=== PATIENT | female | born 1950 | race Caucasian/White ===

== ENCOUNTER → 2024-02-19 12:47 | Outpatient (REF) | payer MEDICARE, OTHER, SELFPAY | LOC: HWRAD 12:47 | PROVIDERS: ATTENDING PHYSICIAN Dermatology; FAMILY PHYSICIAN Family Medicine | DX: D86.3 Sarcoidosis of skin (principal) | CPT/HCPCS: 71046 ==

== ENCOUNTER → 2024-03-07 12:43 | Outpatient (REF) | payer MEDICARE, OTHER, SELFPAY | LOC: HWRAD 12:43 | PROVIDERS: ATTENDING PHYSICIAN Internal Medicine Critical Care Medicine; FAMILY PHYSICIAN Family Medicine; REFERRING PHYSICIAN Internal Medicine Cardiovascular Disease | DX: D86.9 Sarcoidosis, unspecified (principal) | CPT/HCPCS: 71250 ==

== ENCOUNTER → 2024-03-12 10:22 | Outpatient (REF) | payer MEDICARE, OTHER, SELFPAY | LOC: HWRCS 10:22 | PROVIDERS: ATTENDING PHYSICIAN Internal Medicine Critical Care Medicine | DX: R06.02 Shortness of breath (principal); D86.9 Sarcoidosis, unspecified | CPT/HCPCS: 93306 ==

== ENCOUNTER → 2024-04-30 13:16 | Outpatient (REF) | payer MEDICARE, OTHER, SELFPAY ==
[2024-04-30 15:26] LABS: Hematocrit 37.8 % (37.0-47.0); Hemoglobin 12.9 g/dL (12.0-16.0); Mean Corp Hgb Conc. 34.1 g/dL (33.0-37.0); Mean Corpuscular Hgb 31.2 pg (27.0-31.0); Mean Corpuscular Volume 91.5 fL (81.0-99.0); Mean Platelet Volume 9.8 fL (7.4-10.4); Platelet Count 270 10^3/uL (130-400); Red Blood Cell Count 4.13 10^6/uL (4.20-5.40); Red Cell Dist. Width 14.5 % (11.5-14.5); White Blood Cell Count 8.8 10^3/uL (4.8-10.8)
[2024-04-30 15:36] LABS: Blood Urea Nitrogen 30 mg/dl (7-17); Calcium 10.3 mg/dl (8.4-10.2); Carbon Dioxide 30 mmol/L (22-30); Chloride 99 mmol/L (98-107); Glucose 90 mg/dl (70-99); Magnesium 1.8 mg/dl (1.6-2.3); Potassium 4.4 mmol/L (3.5-5.1); Sodium 139 mmol/L (135-145); eGFR 39.97
[2024-04-30 15:38] LABS: Urine Albumin Trace (Neg - Trace); Urine Bilirubin Negative (Negative); Urine Character Slightly Cloudy (Clear); Urine Color Yellow; Urine Glucose Negative (Negative); Urine Ketone Negative (Negative); Urine Leukocyte 2+ (Negative); Urine Nitrite Negative (Negative); Urine Occult Blood 1+ (Negative); Urine Specific Gravity 1.015 (<1.030); Urine Urobilinogen Negative (Neg - 1+)
[2024-04-30 15:55] LABS: Urine Bacteria Few (Negative); Urine Squamous Cell 26-30 /LPF (Few)
[2024-04-30 16:01] LABS: Protein/creatinine Ratio 0.1; Urine Protein 17 mg/dl
[2024-04-30 16:45] LABS: Uric Acid 5.8 mg/dl (2.5-6.2)
== END ==
LOC: HWLAB 13:16
PROVIDERS: ATTENDING PHYSICIAN Internal Medicine; FAMILY PHYSICIAN Family Medicine
DX: I12.9 Hypertensive chronic kidney disease with stage 1 through stage 4 chronic kidney disease, or unspecified chronic kidney disease (principal); N18.31 Chronic kidney disease, stage 3a
CPT/HCPCS: 36415; 80048; 81003; 81015; 82570; 83735; 84100; 84156; 84550; 85027

== ENCOUNTER → 2024-06-21 10:07 | Outpatient (REF) | payer MEDICARE, OTHER, SELFPAY | LOC: HWRAD 10:07 | PROVIDERS: ATTENDING PHYSICIAN Internal Medicine; FAMILY PHYSICIAN Family Medicine | DX: M81.0 Age-related osteoporosis without current pathological fracture (principal) | CPT/HCPCS: 77080 ==

== ENCOUNTER → 2024-07-04 10:46 | Outpatient (REF) | payer MEDICARE, OTHER, SELFPAY | LOC: HWWDC 10:46 | PROVIDERS: ATTENDING PHYSICIAN Family Medicine | DX: Z12.31 Encounter for screening mammogram for malignant neoplasm of breast (principal) | CPT/HCPCS: 77063; 77067 ==

== ENCOUNTER → 2024-07-11 10:23 | Outpatient (REF) | payer MEDICARE, OTHER, SELFPAY | LOC: WDC 10:23 | PROVIDERS: ATTENDING PHYSICIAN Family Medicine | DX: R92.8 Other abnormal and inconclusive findings on diagnostic imaging of breast (principal) | CPT/HCPCS: 76642 ==

== ENCOUNTER → 2024-08-16 11:34 | Outpatient (REF) | payer MEDICARE, OTHER, SELFPAY ==
[2024-08-16 15:47] LABS: Calcium 10.4 mg/dl (8.4-10.2); Phosphorus 4.2 mg/dl (2.5-4.5)
[2024-08-16 16:34] LABS: Vitamin D, 25-OH*** 68.5 ng/mL (30-80)
[2024-08-19 00:16] LABS: ANA, IgG Reflex to HEp-2 None Detected (None Detected)
[2024-08-19 08:27] LABS: 24 Hour Urine Total Volume Random mL; Urine Collection Length Random hr; Urine Free Kappa Light Chains 23.23 mg/L (0.00-32.90); Urine Free Lambda Light Chains 2.83 mg/L (0.00-3.79)
== END ==
LOC: HWLAB 11:34
PROVIDERS: ATTENDING PHYSICIAN Family Medicine; REFERRING PHYSICIAN Dermatology
DX: M24.811 Other specific joint derangements of right shoulder, not elsewhere classified (principal); M35.9 Systemic involvement of connective tissue, unspecified; M85.80 Other specified disorders of bone density and structure, unspecified site
CPT/HCPCS: 73030; 82306; 82310; 83521; 84100; 84155; 84156; 84165; 86038; 86335; 86430

== ENCOUNTER → 2024-08-22 06:23 | Day surgery (SDC) | payer MEDICARE, OTHER, SELFPAY | LOC: GI 06:23 | PROVIDERS: ATTENDING PHYSICIAN Internal Medicine Gastroenterology; FAMILY PHYSICIAN Family Medicine | DX: Z12.11 Encounter for screening for malignant neoplasm of colon (principal); R19.5 Other fecal abnormalities; K64.8 Other hemorrhoids; K57.30 Diverticulosis of large intestine without perforation or abscess without bleeding; D12.5 Benign neoplasm of sigmoid colon; D12.4 Benign neoplasm of descending colon; K62.1 Rectal polyp | CPT/HCPCS: 45385; 45380; 88305 ==

== ENCOUNTER → 2024-09-02 12:28 | Outpatient (REF) | payer MEDICARE, OTHER, SELFPAY ==
[2024-09-02 17:06] LABS: Blood Urea Nitrogen 35 mg/dl (7-17); Calcium 10.1 mg/dl (8.4-10.2); Carbon Dioxide 30 mmol/L (22-30); Chloride 96 mmol/L (98-107); Glucose 92 mg/dl (70-99); Magnesium 1.8 mg/dl (1.6-2.3); Potassium 4.6 mmol/L (3.5-5.1); Sodium 141 mmol/L (135-145); eGFR 39.97
[2024-09-02 17:07] LABS: Uric Acid 4.5 mg/dl (2.5-6.2)
[2024-09-02 17:43] LABS: % Basophils 0.5 % (0-2); % Eosinophils 1.9 % (0-6); % Lymphocytes 12.6 % (20.5-51.1); % Monocytes 8.2 % (1.7-9.3); % Neutrophils 75.8 % (42.2-75.2); Absolute Basophils 0.1 10^3/uL (0-0.2); Absolute Eosinophils 0.2 10^3/uL (0-0.7); Absolute Immature Granulocytes 0.1 10^3/uL (0-0.05); Absolute Lymphocytes 1.4 10^3/uL (1.2-3.4); Absolute Monocytes 0.9 10^3/uL (0.1-0.6); Absolute Neutrophils 8.3 10^3/uL (1.4-6.5); Hemoglobin 12.9 g/dL (12.0-16.0); Mean Corp Hgb Conc. 33.9 g/dL (33.0-37.0); Mean Corpuscular Hgb 31.2 pg (27.0-31.0); Mean Corpuscular Volume 91.8 fL (81.0-99.0); Mean Platelet Volume 10.3 fL (7.4-10.4); Nucleated Red Blood Cells % 0 %; Platelet Count 290 10^3/uL (130-400); Red Blood Cell Count 4.14 10^6/uL (4.20-5.40); Red Cell Dist. Width 13.3 % (11.5-14.5); White Blood Cell Count 10.9 10^3/uL (4.8-10.8)
[2024-09-02 18:11] LABS: Urine Albumin Negative (Neg - Trace); Urine Bilirubin Negative (Negative); Urine Character Clear (Clear); Urine Color Yellow; Urine Glucose Negative (Negative); Urine Ketone Negative (Negative); Urine Leukocyte Trace (Negative); Urine Nitrite Negative (Negative); Urine Occult Blood Trace (Negative); Urine Urobilinogen Negative (Neg - 1+)
[2024-09-02 18:21] LABS: Protein/creatinine Ratio 0.3; Urine Protein 14 mg/dl
[2024-09-02 19:09] LABS: Urine Red Blood Cell 0-2 /HPF (0-2); Urine Squamous Cell 26-30 /LPF (Few)
[2024-09-02 19:10] LABS: Urine Bacteria Few (Negative)
[2024-09-04 15:57] LABS: Intact PTH 33.7 pg/ml (13.6-85.8)
== END ==
LOC: HWLAB 12:28
PROVIDERS: ATTENDING PHYSICIAN Nurse Practitioner; FAMILY PHYSICIAN Family Medicine
DX: I12.9 Hypertensive chronic kidney disease with stage 1 through stage 4 chronic kidney disease, or unspecified chronic kidney disease (principal); N18.32 Chronic kidney disease, stage 3b
CPT/HCPCS: 36415; 80048; 81003; 81015; 82570; 83735; 83970; 84100; 84156; 84550; 85025

== ENCOUNTER 2024-09-13 14:50 | Emergency (ER) | payer MEDICARE, OTHER, SELFPAY ==
[2024-09-13 14:52] VITALS: BP 135/84
--- NOTE | 2024-09-13 16:04 | ED.GENMED ---
History of Present Illness
General
Chief Complaint: Fall
Source: patient
Exam Limitations: none
Time Seen by Provider: 09/13/24 15:38
Nursing documentation reviewed up to this point in time: agreed with
History of Present Illness
History of Present Illness:
73-year-old female past medical history of hypertension hyperlipidemia hypothyroidism presenting to the emergency department today after she got tripped up going to her garage hitting her right elbow. Denies any significant pain no additional
trauma no head trauma no neck pain no numbness or weakness.
Past History
Past History
ED Past Medical History: HTN, Hypothyroidism and Psychiatric
Social History
Personal:
Living: alone
Review of Systems
Review of Systems
Allergies reviewed?: Yes
All Other Systems: ROS reviewed and negative except as documented in HPI and ROS
Phy Exam
Physical Exam
Physical Exam:
GENERAL: Alert , in no apparent distress
EYE: pupils equal and reactive
NECK: Supple, no significant adenopathy.
ENT: o/p clr, mmm.
CARDIAC: Regular rate and rhythm .
LUNGS: Clear breath sounds bilaterally, no acute respiratory distress, no wheezes/rales/rhonchi
ABDOMEN: Soft, without focal tenderness, no r/g, no cvat
NEUROLOGICAL: Alert and oriented, no focal neuro deficits
SKIN: Right elbow just medial to the olecranon 2.5 cm laceration semicircular in shape, subcutaneous in depth no tendon involvement warm and dry, skin intact.
MUSCULOSKELETAL: No edema, well perfused.
PSYCH: Normal and appropriate interaction.
Course
Vital Signs
Initial and Last Documented VS:
Initial Vital Signs
Temp Pulse Resp BP Pulse Ox
97.9 F 69 18 135/84 97
09/13/24 14:52 09/13/24 14:52 09/13/24 14:52 09/13/24 14:52 09/13/24 14:52
Last Documented Vital Signs
Temp Pulse Resp BP Pulse Ox
97.9 F 69 18 135/84 97
09/13/24 14:52 09/13/24 14:52 09/13/24 14:52 09/13/24 14:52 09/13/24 14:52
Procedures
Laceration Closure
Right Elbow:
Status of Wound: clean
Size of Wound in cm: 2.5
Description of Wound Edges: sharp
Preparation: cleaned with saline
Anesthesia: 1% Lidocaine with epi
Revision/Debridement: routine- no revision and irrigate-direct pressure
Wound exploration: explored to base- no FB and no tendon involvement
Type of Closure: single layer closure
Skin Closure Material: 4-0 nylon
Number of sutures: 4
MDM/Problems Addressed
MDM/Problems Addressed:
73-year-old female presenting to the emergency department today with concerns of a laceration to the right elbow after a trip and fall prior to arrival. She claims that her tetanus shot was about 10 years ago but is refusing getting the tetanus
shot here it was explained to her that this is recommended. She understands risk. Otherwise the area was numbed cleaned thoroughly and closed with 4 stitches. Advised for suture removal in 12 to 14 days. Otherwise low risk for infection very
clean in appearance cleaned thoroughly here. No evidence of bony injury.
*Critical Care Note
Total Time (30-74mins, 75-104mins- exclusive of procedures): Not Applicable
ED Attending Note
-
Portions of this chart may have been created with voice recognition software.� Occasional wrong word or��sound alike� substitutions may have occurred due to the inherent limitations of voice recognition software.
Discharge Plan
Departure
Patient Disposition: Home (Routine Discharge)
Date of Disposition: 09/13/24
Time of Disposition: 16:09
Patient with high blood pressure during this ER visit?: No
Condition: Good
Covid-19: Not Applicable
Discharge Problem:
Elbow laceration
Instructions: Laceration Repair With Stitches (DC)
Prescriptions:
No Action
levothyroxine 175 MCG tablet
175 mcg PO DAILY
donepezil 5 MG tablet
10 mg PO HS
sertraline 100 MG tablet
200 mg PO DAILY
losartan 25 MG tablet
50 mg PO DAILY
memantine 10 MG tablet
28 mg PO DAILY
Livalo 2 MG tablet
2 mg PO Q48H
cholecalciferol (vitamin D3) [Vitamin D3] 1,000 UNIT capsule
1,000 unit PO DAILY
coenzyme Q10 [Co Q-10] 200 MG capsule
200 mg PO DAILY
vitamin E (dl, acetate) 400 UNITS capsule
400 units PO DAILY
Ca-D3-mag [id number]-bor [Calcium 600-D3 Plus (mag-zinc)] 1 EACH tablet
1 ea PO DAILY
magnesium oxide 400 MG tablet
400 mg PO DAILY
Fish Oil
1,200 mg PO BID
carvedilol 6.25 mg Tablet
6.25 mg PO Q12H
nifedipine 30 mg Tablet Extended Release
30 mg PO DAILY
bupropion HCl 100 mg Tablet
100 mg PO BID
amitriptyline 10 mg Tablet
10 mg PO DAILY
solifenacin 10 mg Tablet
10 mg PO DAILY
Reclast
1 dose IV .YEARLY
hydrocodone-acetaminophen 5-325 mg tablet
1 tab PO Q6H PRN (Reason: 1 tab moderate pain or 2 if severe) Qty: 30 0RF
Rx Instructions:
Dx orthopedic surgery
ongoing therapy
meloxicam 15 mg tablet
15 mg PO DAILY Qty: 14 0RF
Rx Instructions:
take with food
post-op
famotidine 20 mg tablet
20 mg PO HS Qty: 30 0RF
dexamethasone 4 mg tablet
4 mg PO BID Qty: 6 0RF
Rx Instructions:
take with food
post-op use only
gabapentin 300 mg capsule
300 mg PO HS Qty: 10 0RF
sennosides [senna] 8.6 mg Tablet
17.2 mg PO BID Qty: 2 0RF
aspirin 325 mg Tablet
325 mg PO DAILY Qty: 1 0RF
magnesium hydroxide 400 mg/5 mL Suspension
30 ml PO DAILYPRN PRN (Reason: constipation) Qty: 30 0RF
docusate sodium 100 mg Capsule
100 mg PO BID Qty: 1 0RF
tramadol 50 mg Tablet
50 mg PO Q6H PRN (Reason: mild pain) Qty: 1 0RF
acetaminophen 500 mg Tablet
1,000 mg PO QID Qty: 0 0RF
Referrals:
Ravi Cuevas DO [Family Provider] -
Activity Restrictions/Additional Instructions:
You came to the emergency department today with concerns of a laceration to your elbow. This was cleaned thoroughly and closed with 4 stitches. Please keep the area clean covered and follow-up in 12 to 14 days for suture removal. Return to the
emergency department sooner for any worsening, new or concerning symptoms.
Interventions
Interventions:
*Risk Screen - Suicide Last Done: 09/13/24 14:52
*General Assessment Last Done: 09/13/24 14:52
*Neglect/Abuse Screening Last Done: 09/13/24 14:52
*ED COVID-19 Vaccine History Last Done: 09/13/24 14:52
ED-Musculoskeletal Assessment Last Done: 09/13/24 15:32
ED- Neurological Assessment Last Done: 09/13/24 15:32
ED-Skin Assessment Last Done: 09/13/24 15:32
Discharge Date and Time
Print Language: BELARUSIAN
== END 2024-09-13 16:15 | disposition home or self-care (01) ==
LOC: EMR 14:50
PROVIDERS: EMERGENCY PHYSICIAN Emergency Medicine; FAMILY PHYSICIAN Family Medicine
DX: S51.011A Laceration without foreign body of right elbow, initial encounter (principal); W01.0XXA Fall on same level from slipping, tripping and stumbling without subsequent striking against object, initial encounter; I10 Essential (primary) hypertension; E78.5 Hyperlipidemia, unspecified; E03.9 Hypothyroidism, unspecified
CPT/HCPCS: 99282; 12001

== ENCOUNTER 2025-01-07 11:38 | Emergency (ER) | payer MEDICARE, OTHER, SELFPAY ==
[2025-01-07 11:40] VITALS: BP 186/104
--- NOTE | 2025-01-07 14:17 | ED.GENMED ---
History of Present Illness
General
Chief Complaint: Musculo-Skeletal Complaint
Source: patient
Exam Limitations: none
Time Seen by Provider: 01/07/25 13:50
Nursing documentation reviewed up to this point in time: agreed with
History of Present Illness
History of Present Illness:
Patient is a 74-year-old female with stage 3 renal disease who presents to the ER for evaluation of abdominal pain status post fall. Patient describes mechanical fall on Monday, 2 [address]. She fell on gravel landed on her right
front abdomen. She denies hitting her head. Denies headache/neck pain. Since fall she has had sharp pain in her right upper quadrant. She denies shortness of breath
Past History
Past History
ED Past Medical History: HTN, Hypothyroidism and Psychiatric
Social History
Personal:
Living: alone
Review of Systems
Review of Systems
Allergies reviewed?: Yes
All Other Systems: ROS reviewed and negative except as documented in HPI and ROS
Constitutional: Reports no symptoms; Denies fever, fatigue or chills
Respiratory: Denies trouble breathing
Cardiac: Reports no symptoms; Denies chest pain
ABD/GI: Reports abdominal pain; Denies nausea, vomiting or diarrhea
: Reports no symptoms
Musculoskeletal: Reports no symptoms
Skin: Reports no symptoms
Neurological: Denies dizzy, headache, weakness or numbness
Psychiatric: Reports no symptoms
Phy Exam
General Physical Exam
General Presentation: no apparent distress
General age: appears stated age
General Skin: warm and dry
General Habitus: normal
General Mental: alert
General Hydration: appears well hydrated
Cardiovascular Exam
Cardiovascular Exam: regular rate/rhythm, no murmur and normal peripheral pulses
Pulmonary Exam
Pulmonary Exam: lungs clear, no respiratory distress and other (minimal right rib tenderness no crepitus no ecchymosis )
Gastrointestinal Exam
Gastrointestinal Exam: soft and other (tender ruq no ecchymosis no crepitus)
Neurological Exam
Neurological Exam: alert and oriented x3
Musculoskeletal Exam
Musculoskeletal Exam: full ROM and other (No obvious head injury no bony cervical spine tenderness)
Skin Exam
Skin Exam: normal color and warm/dry
Psychiatric Exam
Psychiatric Exam: normal mood/affect
Course
Orders/Labs/Results
Orders:
Orders
01/07/25 14:19
CT Abd/pel Without Iv Or Oral Urgent
Comment:
Reason For Exam: trauma pain ruq chronic kidney disease
Chest [CR Chest - 2 Views ] Urgent
Comment:
Reason For Exam: trauma
01/07/25 14:20
IV Insert/Care/Rem.- Treatment PRN
01/07/25 14:24
Complete Blood Count/With Diff Urgent
Comprehensive Metabolic Panel Urgent
01/07/25 16:12
Acetaminophen [Tylenol] 650 mg PO NOW STA
01/07/25 16:12
Lidocaine [Lidocaine 4% Patch] 1 patch TOPICAL NOW STA
Apply Lidocaine patch(s) to:: right rib/ruq
Abnormal Lab Results
01/07/25
14:24
RBC 3.96 L 10^6/uL
(4.20-5.40)
Hct 36.4 L %
(37.0-47.0)
MCH 31.3 H pg
(27.0-31.0)
Abs Immat Gran (auto) 0.1 H 10^3/uL
(0-0.05)
Absolute Neuts (auto) 6.7 H 10^3/uL
(1.4-6.5)
Absolute Lymphs (auto) 1.1 L 10^3/uL
(1.2-3.4)
Immature Gran % 0.8 H %
(0-0.5)
Neutrophils % 76.5 H %
(42.2-75.2)
Lymphocytes % 12.9 L %
(20.5-51.1)
BUN 26 H mg/dl
(7-17)
Creatinine 1.2 H mg/dL
(0.6-1.0)
Total Bilirubin 1.4 H mg/dl
(0.2-1.3)
01/07/25 14:24
01/07/25 14:24
Vital Signs
Initial and Last Documented VS:
Initial Vital Signs
Temp Pulse Resp BP Pulse Ox
98.8 F 64 16 186/104 93
01/07/25 11:40 01/07/25 11:40 01/07/25 11:40 01/07/25 11:40 01/07/25 11:40
Last Documented Vital Signs
Temp Pulse Resp BP Pulse Ox
98.8 F 64 16 186/104 93
01/07/25 11:40 01/07/25 11:40 01/07/25 11:40 01/07/25 11:40 01/07/25 11:40
Personal Injury Paralegal consulted with Physician
Personal Injury Paralegal consulted with physician?: Yes
Name of Physician Consulted: Noh
MDM/Problems Addressed
Differential Diagnosis Includes:
Not limited to contusion versus liver laceration
MDM/Problems Addressed:
Patient is a 74-year-old female stage III kidney disease sustained a fall landing on her abdomen Several days ago. She denies hitting her head. No complaints of headache no neck pain she is on a blood thinner on exam she is tender in the right
upper quadrant no shortness of breath nontender to ribs. CAT scan without contrast was done as patient does have stage III kidney disease and no acute findings. Patient is stable for discharge home with Tylenol and lidocaine patch.
Chronic conditions affecting care:
Chronic kidney disease stage III
*Radiology
Radiology exam reviewed: radiology read reviewed
*Pulse Oximetry
Patient hypoxic: no
*Critical Care Note
Total Time (30-74mins, 75-104mins- exclusive of procedures): Not Applicable
ED Attending Note
-
Portions of this chart may have been created with voice recognition software.� Occasional wrong word or��sound alike� substitutions may have occurred due to the inherent limitations of voice recognition software.
Discharge Plan
Departure
Patient Disposition: Home (Routine Discharge)
Date of Disposition: 01/07/25
Time of Disposition: 16:20
Patient with high blood pressure during this ER visit?: Yes
Covid-19: Not Applicable
Discharge Problem:
Contusion
Instructions: Contusion (DC), BLOOD PRESSURE, Contusion
Prescriptions:
New
lidocaine 5 % adhesive patch,medicated
1 patch topical DAILY Qty: 15 0RF
No Action
levothyroxine 175 MCG tablet
175 mcg PO DAILY
donepezil 5 MG tablet
10 mg PO HS
sertraline 100 MG tablet
200 mg PO DAILY
losartan 25 MG tablet
50 mg PO DAILY
memantine 10 MG tablet
28 mg PO DAILY
Livalo 2 MG tablet
2 mg PO Q48H
cholecalciferol (vitamin D3) [Vitamin D3] 1,000 UNIT capsule
1,000 unit PO DAILY
coenzyme Q10 [Co Q-10] 200 MG capsule
200 mg PO DAILY
vitamin E (dl, acetate) 400 UNITS capsule
400 units PO DAILY
Ca-D3-mag [id number]-bor [Calcium 600-D3 Plus (mag-zinc)] 1 EACH tablet
1 ea PO DAILY
magnesium oxide 400 MG tablet
400 mg PO DAILY
Fish Oil
1,200 mg PO BID
carvedilol 6.25 mg Tablet
6.25 mg PO Q12H
nifedipine 30 mg Tablet Extended Release
30 mg PO DAILY
bupropion HCl 100 mg Tablet
100 mg PO BID
amitriptyline 10 mg Tablet
10 mg PO DAILY
solifenacin 10 mg Tablet
10 mg PO DAILY
Reclast
1 dose IV .YEARLY
hydrocodone-acetaminophen 5-325 mg tablet
1 tab PO Q6H PRN (Reason: 1 tab moderate pain or 2 if severe) Qty: 30 0RF
Rx Instructions:
Dx orthopedic surgery
ongoing therapy
meloxicam 15 mg tablet
15 mg PO DAILY Qty: 14 0RF
Rx Instructions:
take with food
post-op
famotidine 20 mg tablet
20 mg PO HS Qty: 30 0RF
dexamethasone 4 mg tablet
4 mg PO BID Qty: 6 0RF
Rx Instructions:
take with food
post-op use only
gabapentin 300 mg capsule
300 mg PO HS Qty: 10 0RF
sennosides [senna] 8.6 mg Tablet
17.2 mg PO BID Qty: 2 0RF
aspirin 325 mg Tablet
325 mg PO DAILY Qty: 1 0RF
magnesium hydroxide 400 mg/5 mL Suspension
30 ml PO DAILYPRN PRN (Reason: constipation) Qty: 30 0RF
docusate sodium 100 mg Capsule
100 mg PO BID Qty: 1 0RF
tramadol 50 mg Tablet
50 mg PO Q6H PRN (Reason: mild pain) Qty: 1 0RF
acetaminophen 500 mg Tablet
1,000 mg PO QID Qty: 0 0RF
Referrals:
Ravi Cuevas DO [Family Provider] -
Activity Restrictions/Additional Instructions:
As discussed symptoms are consistent with contusion. You may take Tylenol for symptoms and use lidocaine patches. A prescription for lidocaine patches were sent to your pharmacy take as directed. Follow-up with family doctor the next 2 to 3 days
for reevaluation return if any worsening of symptoms.
Interventions
Interventions:
*Risk Screen - Suicide Last Done: 01/07/25 11:42
*General Assessment Last Done: 01/07/25 13:00
*Neglect/Abuse Screening Last Done: 01/07/25 11:42
*ED COVID-19 Vaccine History Last Done: 01/07/25 13:00
ED-Musculoskeletal Assessment Last Done: 01/07/25 13:00
Discharge Date and Time
Print Language: KITTITIAN
[2025-01-07 14:53] LABS: % Basophils 0.3 % (0-2); % Eosinophils 2.6 % (0-6); % Immature Granulocytes 0.8 % (0-0.5); % Lymphocytes 12.9 % (20.5-51.1); % Monocytes 6.9 % (1.7-9.3); % Neutrophils 76.5 % (42.2-75.2); Absolute Eosinophils 0.2 10^3/uL (0-0.7); Absolute Immature Granulocytes 0.1 10^3/uL (0-0.05); Absolute Lymphocytes 1.1 10^3/uL (1.2-3.4); Absolute Monocytes 0.6 10^3/uL (0.1-0.6); Absolute Neutrophils 6.7 10^3/uL (1.4-6.5); Hematocrit 36.4 % (37.0-47.0); Hemoglobin 12.4 g/dL (12.0-16.0); Mean Corp Hgb Conc. 34.1 g/dL (33.0-37.0); Mean Corpuscular Hgb 31.3 pg (27.0-31.0); Mean Corpuscular Volume 91.9 fL (81.0-99.0); Mean Platelet Volume 9.1 fL (7.4-10.4); Nucleated Red Blood Cells % 0 %; Platelet Count 207 10^3/uL (130-400); Red Blood Cell Count 3.96 10^6/uL (4.20-5.40); Red Cell Dist. Width 13.5 % (11.5-14.5); White Blood Cell Count 8.7 10^3/uL (4.8-10.8)
[2025-01-07 15:06] LABS: ALT (SGPT) 12 U/L (0-35); AST (SGOT) 23 U/L (14-36); Albumin 4.4 g/dl (3.5-5.0); Alkaline Phosphatase 90 U/L (38-126); Blood Urea Nitrogen 26 mg/dl (7-17); Calcium 9.9 mg/dl (8.4-10.2); Carbon Dioxide 30 mmol/L (22-30); Chloride 99 mmol/L (98-107); Glucose 83 mg/dl (70-99); Potassium 3.8 mmol/L (3.5-5.1); Sodium 137 mmol/L (135-145); Total Bilirubin 1.4 mg/dl (0.2-1.3)
[2025-01-07] MEDS: LIDOCAINE 4% PATCH 1 PATCH TOPICAL (16:22)
[2025-01-07] MEDS: TYLENOL 650 MG PO (16:23)
[2025-01-07 16:40] VITALS: BP 158/89
== END 2025-01-07 16:41 | disposition home or self-care (01) ==
LOC: EMR 11:38
PROVIDERS: Nurse Practitioner; EMERGENCY PHYSICIAN Emergency Medicine; FAMILY PHYSICIAN Family Medicine
DX: T14.8XXA Other injury of unspecified body region, initial encounter (principal); R10.11 Right upper quadrant pain; W19.XXXA Unspecified fall, initial encounter; Y92.008 Other place in unspecified non-institutional (private) residence as the place of occurrence of the external cause; I12.9 Hypertensive chronic kidney disease with stage 1 through stage 4 chronic kidney disease, or unspecified chronic kidney disease; N18.30 Chronic kidney disease, stage 3 unspecified; E03.9 Hypothyroidism, unspecified; E78.5 Hyperlipidemia, unspecified; G47.30 Sleep apnea, unspecified; M19.90 Unspecified osteoarthritis, unspecified site; F32.A Depression, unspecified
CPT/HCPCS: 99284; 71046; 74176; 80053; 85025

== ENCOUNTER → 2025-03-15 09:12 | Outpatient (REF) | payer MEDICARE, OTHER, SELFPAY | LOC: PAVMRI 09:12 | PROVIDERS: ATTENDING PHYSICIAN Psychiatry & Neurology Neurology; FAMILY PHYSICIAN Family Medicine | DX: R41.3 Other amnesia (principal) | CPT/HCPCS: 70551 ==

== ENCOUNTER → 2025-03-25 12:19 | Outpatient (REF) | payer MEDICARE, OTHER, SELFPAY ==
[2025-03-25 16:07] LABS: ALT (SGPT) < 10 U/L (0-35); AST (SGOT) 24 U/L (14-36); Albumin 4.7 g/dl (3.5-5.0); Alkaline Phosphatase 72 U/L (38-126); Blood Urea Nitrogen 29 mg/dl (7-17); Calcium 9.7 mg/dl (8.4-10.2); Carbon Dioxide 30 mmol/L (22-30); Chloride 104 mmol/L (98-107); Glucose 101 mg/dl (70-99); Magnesium 1.8 mg/dl (1.6-2.3); Potassium 4.1 mmol/L (3.5-5.1); Sodium 140 mmol/L (135-145); Total Bilirubin 1.4 mg/dl (0.2-1.3); Total Protein 7.2 g/dl (6.3-8.2)
[2025-03-25 16:08] LABS: Uric Acid 4.8 mg/dl (2.5-6.2); Urine Albumin 2+ (Neg - Trace); Urine Bilirubin Negative (Negative); Urine Character Clear (Clear); Urine Color Yellow; Urine Glucose Negative (Negative); Urine Ketone Negative (Negative); Urine Leukocyte 1+ (Negative); Urine Nitrite Negative (Negative); Urine Occult Blood 1+ (Negative); Urine Urobilinogen Negative (Neg - 1+)
[2025-03-25 16:21] LABS: Urine Squamous Cell >30 /LPF (Few)
[2025-03-25 16:22] LABS: Urine Bacteria Many (Negative)
[2025-03-25 16:25] LABS: Protein/creatinine Ratio 0.1; Urine Protein 11 mg/dl
== END ==
LOC: HWLAB 12:19
PROVIDERS: ATTENDING PHYSICIAN Physician Assistant Medical; FAMILY PHYSICIAN Family Medicine
DX: R60.0 Localized edema (principal); E87.3 Alkalosis; I12.9 Hypertensive chronic kidney disease with stage 1 through stage 4 chronic kidney disease, or unspecified chronic kidney disease; N28.1 Cyst of kidney, acquired; R31.9 Hematuria, unspecified; R80.0 Isolated proteinuria; R97.0 Elevated carcinoembryonic antigen [CEA]; N18.32 Chronic kidney disease, stage 3b
CPT/HCPCS: 36415; 71046; 80053; 81003; 81015; 82570; 83735; 84156; 84550

== ENCOUNTER → 2025-04-02 08:58 | Outpatient (REF) | payer MEDICARE, OTHER, SELFPAY | LOC: DHSLP 08:58 | PROVIDERS: ATTENDING PHYSICIAN Internal Medicine Critical Care Medicine; FAMILY PHYSICIAN Family Medicine | DX: G47.33 Obstructive sleep apnea (adult) (pediatric) (principal); R09.02 Hypoxemia | CPT/HCPCS: 95810 ==

== ENCOUNTER → 2025-04-11 13:11 | Outpatient (REF) | payer MEDICARE, OTHER, SELFPAY | LOC: WOUND 13:11 | PROVIDERS: ATTENDING PHYSICIAN Surgery; FAMILY PHYSICIAN Family Medicine | DX: L97.212 Non-pressure chronic ulcer of right calf with fat layer exposed (principal); I87.2 Venous insufficiency (chronic) (peripheral); I73.9 Peripheral vascular disease, unspecified; I89.0 Lymphedema, not elsewhere classified; Z68.41 Body mass index [BMI] 40.0-44.9, adult; N18.30 Chronic kidney disease, stage 3 unspecified; R76.8 Other specified abnormal immunological findings in serum | CPT/HCPCS: 11042; 99204 ==

== ENCOUNTER → 2025-04-21 13:18 | Outpatient (REF) | payer MEDICARE, OTHER, SELFPAY | LOC: WOUND 13:18 | PROVIDERS: ATTENDING PHYSICIAN Surgery; FAMILY PHYSICIAN Family Medicine | DX: L97.212 Non-pressure chronic ulcer of right calf with fat layer exposed (principal); I87.2 Venous insufficiency (chronic) (peripheral); I73.9 Peripheral vascular disease, unspecified; I89.0 Lymphedema, not elsewhere classified; N13.0 Hydronephrosis with ureteropelvic junction obstruction; R76.8 Other specified abnormal immunological findings in serum; Z68.41 Body mass index [BMI] 40.0-44.9, adult | CPT/HCPCS: 11042 ==

== ENCOUNTER → 2025-04-30 10:33 | Outpatient (REF) | payer MEDICARE, OTHER, SELFPAY | LOC: RAD 10:33 | PROVIDERS: ATTENDING PHYSICIAN Surgery; FAMILY PHYSICIAN Family Medicine | DX: L97.212 Non-pressure chronic ulcer of right calf with fat layer exposed (principal); I87.2 Venous insufficiency (chronic) (peripheral); I73.9 Peripheral vascular disease, unspecified | CPT/HCPCS: 93922; 93970 ==

== ENCOUNTER → 2025-05-05 13:58 | Outpatient (REF) | payer MEDICARE, OTHER, SELFPAY | LOC: WOUND 13:58 | PROVIDERS: ATTENDING PHYSICIAN Surgery; FAMILY PHYSICIAN Family Medicine | DX: L97.212 Non-pressure chronic ulcer of right calf with fat layer exposed (principal); I87.2 Venous insufficiency (chronic) (peripheral); I73.9 Peripheral vascular disease, unspecified; I89.0 Lymphedema, not elsewhere classified; N18.30 Chronic kidney disease, stage 3 unspecified; R76.8 Other specified abnormal immunological findings in serum; Z68.41 Body mass index [BMI] 40.0-44.9, adult | CPT/HCPCS: 11042 ==

== ENCOUNTER → 2025-05-12 11:20 | Outpatient (REF) | payer MEDICARE, OTHER, SELFPAY | LOC: WOUND 11:20 | PROVIDERS: ATTENDING PHYSICIAN Surgery; FAMILY PHYSICIAN Family Medicine | DX: L97.212 Non-pressure chronic ulcer of right calf with fat layer exposed (principal); I87.2 Venous insufficiency (chronic) (peripheral); I73.9 Peripheral vascular disease, unspecified; I89.0 Lymphedema, not elsewhere classified; Z68.41 Body mass index [BMI] 40.0-44.9, adult; N18.30 Chronic kidney disease, stage 3 unspecified; R76.8 Other specified abnormal immunological findings in serum | CPT/HCPCS: 11042 ==

== ENCOUNTER → 2025-05-19 11:27 | Outpatient (REF) | payer MEDICARE, OTHER, SELFPAY | LOC: WOUND 11:27 | PROVIDERS: ATTENDING PHYSICIAN Surgery; FAMILY PHYSICIAN Family Medicine | DX: L97.212 Non-pressure chronic ulcer of right calf with fat layer exposed (principal); I87.2 Venous insufficiency (chronic) (peripheral); I73.9 Peripheral vascular disease, unspecified; I89.0 Lymphedema, not elsewhere classified; Z68.41 Body mass index [BMI] 40.0-44.9, adult; N18.30 Chronic kidney disease, stage 3 unspecified; R76.8 Other specified abnormal immunological findings in serum | CPT/HCPCS: 11042 ==

== ENCOUNTER → 2025-05-26 10:04 | Outpatient (REF) | payer MEDICARE, OTHER, SELFPAY ==
[2025-05-26 11:23] LABS: Urine Character Slightly Cloudy (Clear)
[2025-05-26 11:23] LABS: Hematocrit 34.5 % (37.0-47.0); Hemoglobin 12.1 g/dL (12.0-16.0); Mean Corp Hgb Conc. 35.1 g/dL (33.0-37.0); Mean Corpuscular Volume 89.8 fL (81.0-99.0); Nucleated Red Blood Cells % 0 %; Platelet Count 229 10^3/uL (130-400); Red Cell Dist. Width 13.2 % (11.5-14.5)
[2025-05-26 11:39] LABS: Urine Red Blood Cell 0-2 /HPF (0-2); Urine Squamous Cell >30 /LPF (Few)
[2025-05-26 11:52] LABS: Rheumatoid Agglutinin Less Than 10 IU (<10 IU)
[2025-05-26 11:54] LABS: ALT (SGPT) < 10 U/L (0-35); AST (SGOT) 24 U/L (14-36); Albumin 4.7 g/dl (3.5-5.0); Alkaline Phosphatase 65 U/L (38-126); Blood Urea Nitrogen 27 mg/dl (7-17); Calcium 9.8 mg/dl (8.4-10.2); Carbon Dioxide 28 mmol/L (22-30); Chloride 103 mmol/L (98-107); Glucose 89 mg/dl (70-99); HDL Cholesterol 69 mg/dl; LDL Cholesterol, Calculated 79 mg/dl; Magnesium 1.8 mg/dl (1.6-2.3); Potassium 4.1 mmol/L (3.5-5.1); Sodium 138 mmol/L (135-145); Total Protein 7.3 g/dl (6.3-8.2); Uric Acid 6.3 mg/dl (2.5-6.2); Very Low Density Lipoprotein 24 mg/dl (0-30); eGFR 43.42
[2025-05-26 12:23] LABS: TSH 0.99 uIU/ml (0.47-4.68)
[2025-05-26 12:26] LABS: CEA 7.86 ng/ml
[2025-05-26 12:58] LABS: Folate > 20.0 ng/ml (2.76-20); Vitamin B12 408 pg/ml (239-931)
[2025-05-26 13:33] LABS: Glycohemoglobin (HgbA1c) 5.1 % (4.0-5.6)
[2025-05-28 11:42] LABS: Lyme Antibody Screen, EIA Negative (Negative)
== END ==
LOC: HWLAB 10:04
PROVIDERS: ATTENDING PHYSICIAN Psychiatry & Neurology Neurology; FAMILY PHYSICIAN Family Medicine; REFERRING PHYSICIAN Psychologist Clinical
DX: G62.9 Polyneuropathy, unspecified (principal); E53.8 Deficiency of other specified B group vitamins; D68.62 Lupus anticoagulant syndrome; L95.0 Livedoid vasculitis; M06.9 Rheumatoid arthritis, unspecified; R53.83 Other fatigue; Z00.00 Encounter for general adult medical examination without abnormal findings; E78.5 Hyperlipidemia, unspecified; I10 Essential (primary) hypertension; E03.9 Hypothyroidism, unspecified; R97.0 Elevated carcinoembryonic antigen [CEA]; R73.09 Other abnormal glucose
CPT/HCPCS: 36415; 80053; 80061; 81003; 81015; 82164; 82378; 82607; 82746; 83036; 83090; 83516; 83520; 83735; 83921; 84100; 84155; 84156; 84165; 84439; 84443; 84550; 85025; 85610; 85613; 85730; 86038; 86235; 86335; 86430; 86618

== ENCOUNTER → 2025-05-26 11:20 | Outpatient (REF) | payer MEDICARE, OTHER, SELFPAY | LOC: WOUND 11:20 | PROVIDERS: ATTENDING PHYSICIAN Surgery | DX: L97.212 Non-pressure chronic ulcer of right calf with fat layer exposed (principal); I87.2 Venous insufficiency (chronic) (peripheral); I73.9 Peripheral vascular disease, unspecified; I89.0 Lymphedema, not elsewhere classified; N18.30 Chronic kidney disease, stage 3 unspecified; R76.8 Other specified abnormal immunological findings in serum; Z68.41 Body mass index [BMI] 40.0-44.9, adult | CPT/HCPCS: 11042 ==

== ENCOUNTER → 2025-06-03 11:25 | Outpatient (REF) | payer MEDICARE, OTHER, SELFPAY | LOC: WOUND 11:25 | PROVIDERS: ATTENDING PHYSICIAN Surgery; FAMILY PHYSICIAN Family Medicine | DX: L97.212 Non-pressure chronic ulcer of right calf with fat layer exposed (principal); I87.2 Venous insufficiency (chronic) (peripheral); I89.0 Lymphedema, not elsewhere classified; N18.30 Chronic kidney disease, stage 3 unspecified; Z68.41 Body mass index [BMI] 40.0-44.9, adult; R76.8 Other specified abnormal immunological findings in serum | CPT/HCPCS: 11042 ==

== ENCOUNTER → 2025-06-10 11:19 | Outpatient (REF) | payer MEDICARE, OTHER, SELFPAY | LOC: WOUND 11:19 | PROVIDERS: ATTENDING PHYSICIAN Surgery; FAMILY PHYSICIAN Family Medicine | DX: L97.212 Non-pressure chronic ulcer of right calf with fat layer exposed (principal); I87.2 Venous insufficiency (chronic) (peripheral); I73.9 Peripheral vascular disease, unspecified; I89.0 Lymphedema, not elsewhere classified; Z68.41 Body mass index [BMI] 40.0-44.9, adult; N18.30 Chronic kidney disease, stage 3 unspecified; R76.8 Other specified abnormal immunological findings in serum | CPT/HCPCS: 11042 ==

== ENCOUNTER → 2025-06-17 11:23 | Outpatient (REF) | payer MEDICARE, OTHER, SELFPAY | LOC: WOUND 11:23 | PROVIDERS: ATTENDING PHYSICIAN Surgery; FAMILY PHYSICIAN Family Medicine | DX: L97.212 Non-pressure chronic ulcer of right calf with fat layer exposed (principal); I87.2 Venous insufficiency (chronic) (peripheral); I73.9 Peripheral vascular disease, unspecified; I89.0 Lymphedema, not elsewhere classified; N18.30 Chronic kidney disease, stage 3 unspecified; R76.9 Abnormal immunological finding in serum, unspecified; Z68.41 Body mass index [BMI] 40.0-44.9, adult | CPT/HCPCS: 11042 ==

== ENCOUNTER → 2025-06-23 11:14 | Outpatient (REF) | payer MEDICARE, OTHER, SELFPAY | LOC: WOUND 11:14 | PROVIDERS: ATTENDING PHYSICIAN Surgery; FAMILY PHYSICIAN Family Medicine | DX: L97.212 Non-pressure chronic ulcer of right calf with fat layer exposed (principal); I87.2 Venous insufficiency (chronic) (peripheral); I73.9 Peripheral vascular disease, unspecified; R76.8 Other specified abnormal immunological findings in serum; N18.30 Chronic kidney disease, stage 3 unspecified; Z68.41 Body mass index [BMI] 40.0-44.9, adult | CPT/HCPCS: 11042 ==

== ENCOUNTER → 2025-07-01 14:51 | Outpatient (REF) | payer MEDICARE, OTHER, SELFPAY | LOC: WOUND 14:51 | PROVIDERS: ATTENDING PHYSICIAN Surgery; FAMILY PHYSICIAN Family Medicine | DX: L97.212 Non-pressure chronic ulcer of right calf with fat layer exposed (principal); I87.2 Venous insufficiency (chronic) (peripheral); I73.9 Peripheral vascular disease, unspecified; I89.0 Lymphedema, not elsewhere classified; Z68.41 Body mass index [BMI] 40.0-44.9, adult; N18.30 Chronic kidney disease, stage 3 unspecified; R76.8 Other specified abnormal immunological findings in serum | CPT/HCPCS: 11042 ==

== ENCOUNTER → 2025-07-14 11:30 | Outpatient (REF) | payer MEDICARE, OTHER, SELFPAY | LOC: WOUND 11:30 | PROVIDERS: ATTENDING PHYSICIAN Surgery | DX: L97.212 Non-pressure chronic ulcer of right calf with fat layer exposed (principal); I87.2 Venous insufficiency (chronic) (peripheral); I73.9 Peripheral vascular disease, unspecified; I89.0 Lymphedema, not elsewhere classified; Z68.41 Body mass index [BMI] 40.0-44.9, adult; N18.30 Chronic kidney disease, stage 3 unspecified; R76.8 Other specified abnormal immunological findings in serum | CPT/HCPCS: 11042 ==

== ENCOUNTER → 2025-07-28 13:15 | Outpatient (REF) | payer MEDICARE, OTHER, SELFPAY | LOC: WOUND 13:15 | PROVIDERS: ATTENDING PHYSICIAN Surgery; FAMILY PHYSICIAN Family Medicine | DX: L97.212 Non-pressure chronic ulcer of right calf with fat layer exposed (principal); I87.2 Venous insufficiency (chronic) (peripheral); I73.9 Peripheral vascular disease, unspecified; I89.0 Lymphedema, not elsewhere classified; N18.30 Chronic kidney disease, stage 3 unspecified; R76.8 Other specified abnormal immunological findings in serum; Z68.41 Body mass index [BMI] 40.0-44.9, adult | CPT/HCPCS: 99213 ==

== ENCOUNTER → 2025-08-11 11:21 | Outpatient (REF) | payer MEDICARE, OTHER, SELFPAY | LOC: WOUND 11:21 | PROVIDERS: ATTENDING PHYSICIAN Surgery; FAMILY PHYSICIAN Family Medicine | DX: L97.212 Non-pressure chronic ulcer of right calf with fat layer exposed (principal); I87.2 Venous insufficiency (chronic) (peripheral); I73.9 Peripheral vascular disease, unspecified; I89.0 Lymphedema, not elsewhere classified; Z68.41 Body mass index [BMI] 40.0-44.9, adult; N18.30 Chronic kidney disease, stage 3 unspecified; R76.8 Other specified abnormal immunological findings in serum | CPT/HCPCS: 99212 ==

== ENCOUNTER → 2025-08-15 14:39 | Outpatient (REF) | payer MEDICARE, OTHER, SELFPAY | LOC: HWWDC 14:39 | PROVIDERS: ATTENDING PHYSICIAN Family Medicine | DX: Z12.31 Encounter for screening mammogram for malignant neoplasm of breast (principal) | CPT/HCPCS: 77063; 77067 ==